=== PATIENT | female | born 1960 | race African-American/Black ===

== ENCOUNTER 2019-09-05 05:24 | Emergency (ER) | payer MEDICAID, OTHER ==
[~2019-09-05] VITALS: Ht 165.1 cm; Wt 77.0 kg
[2019-09-05] MEDS ORDERED: KETOROLAC 60MG/2ML VIAL IM ONE (06:30)
[2019-09-05 07:21] VITALS: BP 145/87
== END 2019-09-05 07:25 | disposition home or self-care (01) ==
LOC: ER 05:24
DX: M75.31 Calcific tendinitis of right shoulder (principal); I10 Essential (primary) hypertension
CPT/HCPCS: 72040; 73030; 96372; 99284; J1885

== ENCOUNTER 2021-06-09 04:42 | Emergency (ER) | payer MEDICAID, OTHER ==
[~2021-06-09] VITALS: Ht 167.6 cm; Wt 93.0 kg
[2021-06-09 04:54] VITALS: BP 133/87
[2021-06-09 06:24] LABS: BASOPHILS % 1.1 % (0.0-2.0); EOSINOPHILS % 4.2 % (0.0-5.0); HEMATOCRIT. 34.8 % (36.0-48.0); HEMOGLOBIN. 11.4 g/dL (12.0-16.0); LYMPHOCYTES % 31.7 % (20.0-50.0); MEAN CORPUSCULAR VOLUME 82.9 fL (81.0-99.0); MEAN PLATELET VOLUME 8.3 fl (7.4-10.4); MONOCYTES % 7.4 % (2.0-8.0); NEUTROPHILS % 55.6 % (40.0-76.0); PLATELET 286 x1000/uL (130-400); RED CELL DISTRIBUTION WIDTH 16.1 % (11.6-14.6)
[2021-06-09 06:27] LABS: CLARITY URINE CLEAR (CLEAR); COLOR URINE YELLOW (YELLOW); KETONES URINE TRACE (NEGATIVE); LEUKOCYTE ESTERASE URINE 1+ (NEGATIVE); NITRITE URINE NEGATIVE (NEGATIVE); OCCULT BLOOD URINE NEGATIVE (NEGATIVE); PH URINE 6.5 (4.5-8.0); PROTEIN URINE NEGATIVE (NEGATIVE); SPECIFIC GRAVITY URINE 1.024 (1.005-1.030); UROBILINOGEN URINE 0.2 E.U./dL (0.2-1.0)
[2021-06-09 06:29] LABS: CHLORIDE 108 mEq/L (98-107)
[2021-06-09] MEDS ORDERED: DICL50TA9 MT (08:13)
== END 2021-06-09 08:27 | disposition home or self-care (01) ==
LOC: ER 04:58
DX: M54.12 Radiculopathy, cervical region (principal); I10 Essential (primary) hypertension; M32.9 Systemic lupus erythematosus, unspecified
CPT/HCPCS: 36415; 71045; 80053; 81003; 83880; 84484; 85025; 93005; 99285

== ENCOUNTER 2024-04-08 14:24 | Inpatient (IN) | payer MEDICAID, OTHER ==
[~2024-04-08] VITALS: Ht 154.9 cm; Wt 83.9 kg
[~2024-04-08 14:24] MED LIST: DICL50TA9 MT
[2024-04-08] MEDS: LACTATED RINGERS 1,000 ML IV ONE (16:00)
[2024-04-08 17:13] LABS: BASOPHILS % 0.3 % (0.0-2.0); DIFFERENTIAL COMMENT 0; HEMATOCRIT. 41.4 % (36.0-48.0); HEMOGLOBIN. 12.8 g/dL (12.0-16.0); LYMPHOCYTES % 20.4 % (20.0-50.0); MEAN CORPUSCULAR HEMOGLOBIN 26.8 pg (28.0-32.0); MEAN CORPUSCULAR HGB CONC 30.9 g/dL (31.0-37.0); MEAN CORPUSCULAR VOLUME 86.6 fL (81.0-99.0); MEAN PLATELET VOLUME 10.5 fl (7.4-10.4); MONOCYTES % 6.7 % (2.0-8.0); NEUTROPHILS % 72.6 % (40.0-76.0); PLATELET 220 x1000/uL (130-400); RED BLOOD CELL COUNT 4.78 mill/uL (4.2-5.4); RED CELL DISTRIBUTION WIDTH 15.9 % (11.6-14.6); WHITE BLOOD COUNT 4.3 x1000/uL (4.5-11.0)
[2024-04-08 17:27] LABS: PROTHROMBIN TIME 10.9 sec (9.6-11.0)
[2024-04-08 17:56] LABS: CHLORIDE 96 mEq/L (98-107); POTASSIUM 5.4 mEq/L (3.5-5.1); SODIUM 132 mEq/L (136-145)
[2024-04-08 17:57] LABS: CARBON DIOXIDE 23 mEq/L (21-32)
[2024-04-08 17:58] LABS: CALCIUM 9.6 mg/dL (8.7-10.4)
[2024-04-08 18:02] LABS: CREATININE 2.1 mg/dL (0.6-1.0)
[2024-04-08 18:03] LABS: TROPONIN I HIGH SENSITIVITY 9 ng/L (3.0-34); UREA NITROGEN BLOOD 30 mg/dL (9-23)
[2024-04-08 18:04] LABS: ALANINE AMINOTRANSFERASE 34 IU/L (10-49); ALBUMIN 4.4 g/dL (3.2-4.8); ASPARTATE AMINOTRANSFERASE 32 IU/L (<34)
[2024-04-08 18:05] LABS: BILIRUBIN DIRECT 0.2 mg/dL (<=3.0); BILIRUBIN TOTAL 0.5 mg/dL (0.1-1.0); PROTEIN TOTAL 8.1 g/dL (6.0-8.3)
[2024-04-08 18:15] LABS: GLUCOSE 1072 mg/dL (70-105)
[2024-04-08 18:27] LABS: BETA HYDROXYBUTYRATE 1.6 mMol/L (0.0-0.3)
[2024-04-08] MEDS ORDERED: KCL 20MEQ/100ML PREMIX 100 ML IV PRN (18:30)
[2024-04-08] MEDS ORDERED: BLOOD SUGAR DIAGNOSTIC STRIP TEST PRN (18:30)
[2024-04-08] MEDS ORDERED: MAGNESIUM 2 G PREMIX 50 ML IV PRN (18:30)
[2024-04-08] MEDS ORDERED: POTASSIUM CHLORIDE 40 MEQ in SODIUM CHLORIDE 0.9% 230 ML IV PRN (18:30)
[2024-04-08] MEDS ORDERED: DEXTROSE 50% WATER 50ML SYRINGE IV PRN (18:30)
[2024-04-08] MEDS ORDERED: INSULIN REGULAR (DRIP) 100 UNITS in SODIUM CHLORIDE 0.9% 99 ML IV SCH (18:30)
[2024-04-08] MEDS ORDERED: SODIUM PHOSPHATE 15 MMOL in SODIUM CHLORIDE 0.9% 245 ML IV PRN (18:30)
[2024-04-08] MEDS: DEXT 5%/0.9% NACL 1,000 ML IV SCH (18:30)
[2024-04-08] MEDS: BLOOD SUGAR DIAGNOSTIC STRIP TEST SCH (18:41)
[2024-04-08] MEDS: INSULIN REGULAR (HUMULIN R) 1000UNITS/10ML VIAL IV ONE (18:46)
[2024-04-08] MEDS: SODIUM CHLORIDE 0.9% 1,000 ML IV SCH (18:56)
[2024-04-08] MEDS: INSULIN REGULAR 100U/100ML PMX 100 ML IV SCH (19:23)
[2024-04-08 20:38] LABS: CARBON DIOXIDE 24 mEq/L (21-32); CHLORIDE 102 mEq/L (98-107); SODIUM 137 mEq/L (136-145)
[2024-04-08 20:39] LABS: CALCIUM 9.5 mg/dL (8.7-10.4)
[2024-04-08 20:43] LABS: CREATININE 1.8 mg/dL (0.6-1.0)
[2024-04-08 20:44] LABS: UREA NITROGEN BLOOD 27 mg/dL (9-23)
[2024-04-08 20:46] LABS: PHOSPHORUS 2.7 mg/dL (2.5-4.9)
[2024-04-08 21:40] LABS: GLUCOSE 710 mg/dL (70-105)
[2024-04-08 22:08] LABS: BG BASE EXCESS 1.8 mmol/L (-2.0-3.0); BG CARBOXYHEMOGLOBIN 0.3 % (0.5-1.5); BG DEOXYHEMOGLOBIN 8.5 % (0.0-5.0); BG FRACTION INSPIRED OXYGEN 21; BG HCO3 ACT 26.4 mmol/L (21.0-28.0); BG METHEMOGLOBIN 0.2 % (0.5-1.5); BG OXYGEN SATURATION 91.5 % (94.0-98.0); BG PCO2 41.3 mmHg (32.0-45.0); BG PH 7.424 (7.350-7.450); BG PO2 60.5 mmHg (83.0-108.0); BG TOTAL HEMOGLOBIN 21.2 g/dL (12.0-16.0); BG VENT MODE ROOM AIR
[2024-04-08 23:48] LABS: CLARITY URINE CLEAR (CLEAR); COLOR URINE YELLOW (YELLOW); GLUCOSE URINE 3+ (NEGATIVE); KETONES URINE TRACE (NEGATIVE); LEUKOCYTE ESTERASE URINE NEGATIVE (NEGATIVE); NITRITE URINE NEGATIVE (NEGATIVE); OCCULT BLOOD URINE 1+ (NEGATIVE); PH URINE 5.5 (4.5-8.0); PROTEIN URINE TRACE (NEGATIVE); SPECIFIC GRAVITY URINE 1.041 (1.005-1.030); UROBILINOGEN URINE 0.2 E.U./dL (0.2-1.0)
[2024-04-09 00:40] LABS: CHLORIDE 108 mEq/L (98-107)
[2024-04-09 00:41] LABS: CARBON DIOXIDE 30 mEq/L (21-32)
[2024-04-09 00:48] LABS: PHOSPHORUS 1.7 mg/dL (2.5-4.9)
[2024-04-09 01:03] LABS: SODIUM 146 mEq/L (136-145)
[2024-04-09] MEDS ORDERED: GUAIFENESIN 200MG/10ML SUGAR FREE UDC PO PRN (02:00)
[2024-04-09] MEDS ORDERED: IPRATROPIUM/ALBUTEROL 0.5-3(2.5)MG/3ML NEB NEB PRN (02:00)
[2024-04-09] MEDS: DIPHENHYDRAMINE 50MG/ML VIAL IV NR (02:54)
[2024-04-09 03:42] LABS: WBC URINE 0-2 /hpf (0-2)
[2024-04-09 03:43] LABS: RBC URINE 0-2 /hpf (0-2); SQUAMOUS EPITHELIAL CELL URINE 1+ /lpf (RARE/1+)
[2024-04-09 03:44] LABS: BACTERIA URINE 1+
[2024-04-09 05:53] LABS: CHLORIDE 110 mEq/L (98-107); POTASSIUM 3.8 mEq/L (3.5-5.1); SODIUM 149 mEq/L (136-145)
[2024-04-09 05:54] LABS: CALCIUM 9.6 mg/dL (8.7-10.4); CARBON DIOXIDE 30 mEq/L (21-32)
[2024-04-09 05:59] LABS: CREATININE 1.2 mg/dL (0.6-1.0); GLUCOSE 176 mg/dL (70-105)
[2024-04-09 06:00] LABS: UREA NITROGEN BLOOD 23 mg/dL (9-23)
[2024-04-09 06:02] LABS: PHOSPHORUS 2.9 mg/dL (2.5-4.9)
[2024-04-09] MEDS: PANTOPRAZOLE 40MG DR TABLET PO SCH (08:09)
[2024-04-09 09:24] LABS: BG BASE EXCESS 1.3 mmol/L (-2.0-3.0); BG CARBOXYHEMOGLOBIN 0.4 % (0.5-1.5); BG HCO3 ACT 25.2 mmol/L (21.0-28.0); BG METHEMOGLOBIN 0.3 % (0.5-1.5); BG OXYHEMOGLOBIN 94.3 % (94.0-98.0); BG PCO2 37.3 mmHg (32.0-45.0); BG PH 7.448 (7.350-7.450); BG PO2 73.6 mmHg (83.0-108.0); BG SAMPLE SITE RIGHT RADIAL; BG TOTAL HEMOGLOBIN 11.7 g/dL (12.0-16.0); BG VENT MODE ROOM AIR
[2024-04-09] MEDS: ENOXAPARIN 40MG/0.4ML SYR SUBCUT SCH (09:57)
[2024-04-09 13:07] LABS: CHLORIDE 113 mEq/L (98-107); POTASSIUM 3.6 mEq/L (3.5-5.1); SODIUM 151 mEq/L (136-145)
[2024-04-09 13:09] LABS: CALCIUM 9.2 mg/dL (8.7-10.4); CARBON DIOXIDE 30 mEq/L (21-32)
[2024-04-09 13:11] LABS: HEMATOCRIT 35.4 % (36.0-48.0); HEMOGLOBIN 11.3 g/dL (12.0-16.0); MEAN CORPUSCULAR HEMOGLOBIN 26.6 pg (28.0-32.0); MEAN CORPUSCULAR HGB CONC 31.8 g/dL (31.0-37.0); MEAN CORPUSCULAR VOLUME 83.6 fL (81.0-99.0); PLATELET 179 x1000/uL (130-400); RED BLOOD CELL COUNT 4.24 mill/uL (4.2-5.4); RED CELL DISTRIBUTION WIDTH 15.2 % (11.6-14.6)
[2024-04-09 13:14] LABS: CREATININE 1.2 mg/dL (0.6-1.0); GLUCOSE 189 mg/dL (70-105); UREA NITROGEN BLOOD 23 mg/dL (9-23)
[2024-04-09 13:16] LABS: ALANINE AMINOTRANSFERASE 28 IU/L (10-49); ALBUMIN 3.7 g/dL (3.2-4.8); ASPARTATE AMINOTRANSFERASE 35 IU/L (<34); BILIRUBIN TOTAL 0.4 mg/dL (0.1-1.0); PROTEIN TOTAL 6.9 g/dL (6.0-8.3)
[2024-04-09] MEDS ORDERED: DEXTROSE 50% WATER 50ML SYRINGE IV PRN (13:45)
[2024-04-09] MEDS: INSULIN GLARGINE 100 UNITS/ML SUBCUT NR (14:32)
[2024-04-09 16:00] VITALS: BP 136/67; PULSE 95; RESP 15; TEMP 36.78072; O2SAT 94
[2024-04-09 16:30] VITALS: BP 136/67; PULSE 19; RESP 20; TEMP 36.8072
[2024-04-09] MEDS: BLOOD SUGAR DIAGNOSTIC STRIP TEST SCH (17:06)
[2024-04-09] MEDS ORDERED: METF-416 PO (17:09)
[2024-04-09] MEDS ORDERED: ALBU2.5V13 IH (17:11)
[2024-04-09] MEDS ORDERED: losartan (17:11)
[2024-04-09] MEDS: INSULIN LISPRO 100 UNITS/ML SUBCUT SCH (17:15)
[2024-04-09 18:49] LABS: HEMATOCRIT 36.9 % (36.0-48.0); HEMOGLOBIN 11.7 g/dL (12.0-16.0); MEAN CORPUSCULAR HEMOGLOBIN 26.6 pg (28.0-32.0); MEAN CORPUSCULAR HGB CONC 31.7 g/dL (31.0-37.0); MEAN CORPUSCULAR VOLUME 83.9 fL (81.0-99.0); PLATELET 171 x1000/uL (130-400); RED BLOOD CELL COUNT 4.39 mill/uL (4.2-5.4); RED CELL DISTRIBUTION WIDTH 15.8 % (11.6-14.6); WHITE BLOOD COUNT 5.6 x1000/uL (4.5-11.0)
[2024-04-09 18:50] LABS: CHLORIDE 110 mEq/L (98-107); POTASSIUM 3.7 mEq/L (3.5-5.1); SODIUM 144 mEq/L (136-145)
[2024-04-09 18:51] LABS: CARBON DIOXIDE 26 mEq/L (21-32)
[2024-04-09 18:56] LABS: CREATININE 1.3 mg/dL (0.6-1.0); GLUCOSE 398 mg/dL (70-105)
[2024-04-09 18:57] LABS: UREA NITROGEN BLOOD 23 mg/dL (9-23)
[2024-04-09 18:59] LABS: PHOSPHORUS 1.8 mg/dL (2.5-4.9)
[2024-04-09 20:00] VITALS: BP 140/70; PULSE 98; RESP 20; O2SAT 94
[2024-04-09] MEDS: INSULIN GLARGINE 100 UNITS/ML SUBCUT SCH (22:35)
[2024-04-09 23:11] LABS: HEMATOCRIT 35.5 % (36.0-48.0); HEMOGLOBIN 11.3 g/dL (12.0-16.0); MEAN CORPUSCULAR HEMOGLOBIN 26.7 pg (28.0-32.0); MEAN CORPUSCULAR HGB CONC 31.8 g/dL (31.0-37.0); MEAN CORPUSCULAR VOLUME 84.1 fL (81.0-99.0); PLATELET 152 x1000/uL (130-400); RED BLOOD CELL COUNT 4.22 mill/uL (4.2-5.4); RED CELL DISTRIBUTION WIDTH 15.5 % (11.6-14.6); WHITE BLOOD COUNT 5.3 x1000/uL (4.5-11.0)
[2024-04-09 23:17] LABS: CHLORIDE 112 mEq/L (98-107); POTASSIUM 3.9 mEq/L (3.5-5.1); SODIUM 146 mEq/L (136-145)
[2024-04-09 23:18] LABS: CALCIUM 8.8 mg/dL (8.7-10.4); CARBON DIOXIDE 27 mEq/L (21-32)
[2024-04-09 23:23] LABS: CREATININE 1.3 mg/dL (0.6-1.0); GLUCOSE 318 mg/dL (70-105); UREA NITROGEN BLOOD 22 mg/dL (9-23)
[2024-04-09 23:25] LABS: PHOSPHORUS 2.3 mg/dL (2.5-4.9)
[2024-04-10] VITALS: BP 121/84; PULSE 83; RESP 15; O2SAT 94
[2024-04-10 04:00] VITALS: BP 115/68; PULSE 76; RESP 16; O2SAT 96
[2024-04-10 06:46] LABS: CHLORIDE 115 mEq/L (98-107); POTASSIUM 4.3 mEq/L (3.5-5.1); SODIUM 147 mEq/L (136-145)
[2024-04-10 06:47] LABS: CALCIUM 8.6 mg/dL (8.7-10.4); CARBON DIOXIDE 24 mEq/L (21-32)
[2024-04-10 06:52] LABS: CREATININE 1.2 mg/dL (0.6-1.0); GLUCOSE 263 mg/dL (70-105); UREA NITROGEN BLOOD 22 mg/dL (9-23)
[2024-04-10 07:09] LABS: HEPATITIS B SURFACE ANTIGEN NEGATIVE (Negative)
[2024-04-10 07:26] LABS: HEMATOCRIT 35.6 % (36.0-48.0); HEMOGLOBIN 11.2 g/dL (12.0-16.0); MEAN CORPUSCULAR HEMOGLOBIN 26.8 pg (28.0-32.0); MEAN CORPUSCULAR HGB CONC 31.5 g/dL (31.0-37.0); MEAN CORPUSCULAR VOLUME 85.3 fL (81.0-99.0); PLATELET 138 x1000/uL (130-400); RED BLOOD CELL COUNT 4.18 mill/uL (4.2-5.4); RED CELL DISTRIBUTION WIDTH 15.8 % (11.6-14.6); WHITE BLOOD COUNT 5.6 x1000/uL (4.5-11.0)
[2024-04-10 07:30] LABS: HEPATITIS C AB NON REACTIVE (Neg) (Negative)
[2024-04-10 08:00] VITALS: BP 154/91; PULSE 97; RESP 17; TEMP 36.89184; O2SAT 98
[2024-04-10 12:06] VITALS: BP 135/73; PULSE 92; RESP 24; TEMP 36.78072; O2SAT 98
[2024-04-10] MEDS ORDERED: INSU100I28 SQ (12:47)
[2024-04-10 13:24] VITALS: BP 154/91; PULSE 97; TEMP 98.4; O2SAT 98
[2024-04-10] MEDS: THROAT LOZENGES-BENZOCAINE/MENTH/CETYLPYRD CL LOZENGES MM PRN (14:32)
[2024-04-10] MEDS ORDERED: FLUTICASONE PROPIONATE 50MCG/SPRAY BOTTLE BOTHNSTRLS SCH (21:00)
== END 2024-04-10 15:30 | disposition home or self-care (01) | DRG 420 ==
LOC: ER 14:35 → EDBEDREQ 16:55 → EDBEDREQSVC 16:55 → MICUSO 18:23 → EDBEDREQSVC 18:25 → 3WST 04-09 16:12
PROVIDERS: ADMIT Internal Medicine; ATTEND Internal Medicine
DX: E11.10 Type 2 diabetes mellitus with ketoacidosis without coma (principal); N17.0 Acute kidney failure with tubular necrosis; J96.01 Acute respiratory failure with hypoxia; M32.9 Systemic lupus erythematosus, unspecified; Z68.35 Body mass index [BMI] 35.0-35.9, adult; I10 Essential (primary) hypertension; E78.5 Hyperlipidemia, unspecified; D64.9 Anemia, unspecified; E66.9 Obesity, unspecified; E87.1 Hypo-osmolality and hyponatremia; E87.6 Hypokalemia; D72.819 Decreased white blood cell count, unspecified; Z79.84 Long term (current) use of oral hypoglycemic drugs
CPT/HCPCS: 36415; 36600; 71045; 80048; 80051; 80053; 80076; 81003; 82010; 82375; 82803; 82805; 82962; 83036; 83735; 83930; 84100; 84484; 85025; 85027; 86705; 87070; 87077; 87186; 87340; 93005; 93970; 94640; 99291; J1200; J1650; J1815; J7030; J7042; J7120

== ENCOUNTER 2024-08-09 04:48 | Emergency (ER) | payer OTHER ==
[~2024-08-09] VITALS: Ht 167.6 cm; Wt 82.0 kg
[~2024-08-09 04:48] MED LIST changes: +ALBU2.5V13 IH; +INSU100I28 SQ; +METF-416 PO; +losartan
[2024-08-09 05:09] VITALS: O2SAT 99
[2024-08-09] MEDS ORDERED: ACET-3800 MT (08:17)
[2024-08-09 08:35] VITALS: BP 100/62; PULSE 85; RESP 16; TEMP 36.7; O2SAT 99
== END 2024-08-09 08:35 | disposition home or self-care (01) ==
LOC: ER 04:48
DX: M79.605 Pain in left leg (principal); M79.604 Pain in right leg; I10 Essential (primary) hypertension; E11.9 Type 2 diabetes mellitus without complications; Z79.4 Long term (current) use of insulin; Z79.899 Other long term (current) drug therapy
CPT/HCPCS: 73560; 93970; 99284